=== PATIENT | male | born 1995 | race Native Hawaiian/Other Pacific Islander ===

== ENCOUNTER 2019-09-08 11:37 | Emergency (ER) | payer OTHER ==
[~2019-09-08] VITALS: Ht 177.8 cm; Wt 70.3 kg
[2019-09-08 11:42] VITALS: TEMP 97.3
[2019-09-08 12:38] LABS: PLATELET COUNT 144 K/uL (142-355)
[2019-09-08 13:09] LABS: POTASSIUM 4.5 mmol/L (3.6-5.2)
[2019-09-08 14:19] VITALS: BP 118/61
== END 2019-09-08 14:19 | disposition home or self-care (01) ==
LOC: ED 11:37
PROVIDERS: Family Medicine
DX: N20.0 Calculus of kidney (principal)
CPT/HCPCS: 36415; 80053; 85027; 96360; 96374; 96375; 99284; J1885